=== PATIENT | female | born 1985 | race Two or more races ===

== ENCOUNTER 2017-02-23 06:00 | Inpatient (IN) | payer OTHER ==
[2017-02-23 06:36] VITALS: BMI 32.6
[2017-02-23] MEDS ORDERED: ELECTROLYTE-148 SOLN 500 ML IV ONE (07:00)
[2017-02-23] MEDS ORDERED: CITRIC ACID/SODIUM CITRATE 30 ML UNIT-DOSE CUP PO ONE ×2 (07:00→11:45)
[2017-02-23] MEDS ORDERED: SUCCINYLCHOLINE CHLORIDE 200 MG/10 ML VIAL ONE (07:25)
[2017-02-23] MEDS ORDERED: ceFAZolin SODIUM 1 GM VIAL ONE ×2 (07:25→07:45)
[2017-02-23] MEDS ORDERED: ePHEDrine SULFATE 50 MG/1 ML AMPULE ONE (07:25)
[2017-02-23] MEDS ORDERED: PHENYLEPHRINE HCL 10 MG/1 ML SINGLE DOSE VIAL ONE (07:25)
[2017-02-23] MEDS ORDERED: PROPOFOL 20 ML ONE (07:25)
[2017-02-23] MEDS ORDERED: SODIUM CHLORIDE 0.9% P/F 10 ML VIAL IJ ONE (07:27)
[2017-02-23] MEDS ORDERED: ELECTROLYTE-148 SOLN 1,000 ML IV SCH (07:30)
[2017-02-23] MEDS ORDERED: OXYTOCIN 20 UNITS in 0.9% NS 20 UNIT/1,000 ML INFUS.BAG IV ONE ×2 (07:41→10:54)
[2017-02-23] MEDS ORDERED: morphine SULFATE/Preservative Free 0.5 MG/ML (1cc Syringe) ONE (07:49)
[2017-02-23] MEDS ORDERED: METHYLERGONOVINE MALEATE 0.2 MG/1 ML AMP IM PRN (08:14)
[2017-02-23] MEDS ORDERED: SENNOSIDES/DOCUSATE COMBO (SENNA PLUS) TABLET (UD) PO PRN (08:14)
[2017-02-23] MEDS ORDERED: oxyCODONE HCL 5 MG TABLET PO PRN (08:14)
--- NOTE | 2017-02-23 08:21 | HP ---
Past Medical History - Admission Chief Complaint: Here for repeat c section History of Present Illness: 31 y/o female with SIUP at 39+ weeks here for scheduled repeat delivery. H/o c section X 2. uncomplicated. No complaints today. + FM, no VB/LOF. History Source: Patient, Medical Record Limitations to Obtaining History: Language Barrier - Past Medical History Cardiovascular: No: AFIB, HTN Pulmonary: No: Asthma, COPD Gastrointestinal: No: GERD, Irritable Bowel Disease Hepatobiliary: No: Hepatitis B, Hepatitis C Reproductive: No: Ectopic , Fibroids, PID ...: 4 ...Para: 2 ...Spon : 1 ...LMP: 05/14/16 ... Weeks Gestation by Dates: 40.5 ...EDC by Dates: 02/18/17 ...EDC by Sono: 02/28/17 Heme/Onc: No: Anemia Infectious Disease: No: HIV, MRSA, STD's Psych: No: Anxiety, Bipolar, Depression - Past Surgical History Past Surgical History: Yes: Hx Myomectomy: No Hx Transabdominal Cerclage: No - Smoking History Smoking history: Never smoked Have you smoked in the past 12 months: No Aproximately how many cigarettes per day: 0 - Alcohol/Substance Use Hx Alcohol Use: No History of Substance Use: reports: None - Social History Usual Living Arrangement: Yes: With Spouse ADL: Independent History of Recent Travel: No Home Medications - Allergies Allergies/Adverse Reactions: Allergies Allergy/AdvReac Type Severity Reaction Status Date / Time No Known Allergies Allergy Verified 02/23/17 06:57 - Home Medications Home Medications: Ambulatory Orders Vit Calc,Iron,Folic [ Vitamins] 1 each PO DAILY 02/23/17 Review of Systems - Review of Systems Constitutional: reports: No Symptoms Eyes: reports: No Symptoms HENT: reports: No Symptoms Neck: reports: No Symptoms Cardiovascular: reports: No Symptoms Respiratory: reports: No Symptoms Gastrointestinal: reports: No Symptoms Genitourinary: reports: Pain (lower abdominal cramping pain) Breasts: reports: No Symptoms Reported Musculoskeletal: reports: No Symptoms Integumentary: reports: No Symptoms Neurological: reports: No Symptoms Endocrine: reports: No Symptoms Hematology/Lymphatic: reports: No Symptoms Psychiatric: reports: No Symptoms Physical Exam - Maternity Constitutional: Yes: Well Nourished, No Distress, Calm Eyes: Yes: Conjunctiva Clear, EOM Intact HENT: Yes: Atraumatic, Normocephalic Neck: Yes: Trachea Midline Cardiovascular: Yes: Regular Rate and Rhythm Lungs: Normal air movement Breast(s): Yes: WNL - Abdominal Exam/OB Number of Fetuses: Single Presentation: Vertex Monitor Mode: External Category: I Accelerations: Uniform Decelerations: None - Vaginal Exam/OB Speculum Exam: No Amniotic Membrane Status: Intact Presentation: Vertex/Position - Physical Exam Extremities: Yes: WNL Psychiatric: Yes: Alert, Oriented Hemorrhage Risk Assessment - Risk Factors Medium Risk Factors: Yes: Prior , uterine surgery,or multiple laparotomies High Risk Factors: Yes: None Risk Score: 1 Risk Level: Medium Risk Problem List - Problems (1) Previous delivery affecting , antepartum Code(s): O34.21 - MATERNAL CARE FOR SCAR FROM PREVIOUS * DO NOT USE * Assessment/Plan 31y/o with SIUP at 39+ weeks, here for scheduled repeat delivery - AFVSS - FHTS reactive - for C section - NPO, SCDs, pino catheter, preop antibiotics - anesthesia and nursing aware
[2017-02-23] MEDS ORDERED: ONDANSETRON 4 MG/2 ML VIAL IVPUSH PRN (08:54)
--- NOTE | 2017-02-23 09:10 | OP ---
Operative Note - Note: Operative Date: 02/23/17 Pre-Operative Diagnosis: SIUP at 39 weeks, prior delivery X2, declined tolac Operation: repeat low transverse delivery Post-Operative Diagnosis: Same as Pre-op Surgeon: Anamaria Godfrey Tank Farm Operator: Matthieu Salas Anesthesiologist/SOLE BLACKER: Smaeer Guajardo Anesthesia: Spinal Specimens Removed: placenta, cord blood Estimated Blood Loss (mls): 600 Operative Report Dictated: Yes
[2017-02-23] MEDS: OXYTOCIN 20 UNITS in 0.9% NS 20 UNIT/1,000 ML INFUS.BAG IV SCH ×2 (10:59→18:37)
[2017-02-23] MEDS ORDERED: ELECTROLYTE-148 SOLN 500 ML IV SCH ×2 (12:00→12:30)
[2017-02-23] MEDS: IBUPROFEN 800 MG/8 ML IJ IVPB PRN ×2 (14:07→21:20)
--- NOTE | 2017-02-23 19:36 | OP ---
DATE OF OPERATION: 02/23/2017 PREOPERATIVE DIAGNOSIS: Single intrauterine at 39 weeks, prior delivery x2, declined trial of labor after delivery. POSTOPERATIVE DIAGNOSIS: Single intrauterine at 39 weeks, prior delivery x2, declined trial of labor after delivery. PROCEDURE: Repeat low transverse delivery. SURGEON: Anamaria Alford DO TECHNOLOGY AND ENGINEERING TEACHER: OJ Roca COMPLICATIONS: None. ESTIMATED BLOOD LOSS: 600 mL COUNTS: Sponge, needle, and instrument count correct. SPECIMENS REMOVED: Placenta and cord blood collection. DISPOSITION: Stable to PACU. BRIEF HISTORY AND DESCRIPTION OF PROCEDURE: Patient is a 31-year-old, G4, P2 female who has a history of prior section x2, who arrived to Labor and Delivery on February 23, 2017, for a scheduled repeat low transverse delivery. Consents were signed upon admission. The patient was then taken back to the operating room. She was given spinal anesthesia by Dr. Sameer Guajardo and was placed on the operating room table in a dorsal supine position. A Miles catheter was placed under sterile conditions. Then, the patient was prepped and draped in the usual fashion, and a hard timeout was performed. A Pfannenstiel skin incision was created in the skin with a scalpel, carried to the underlying layer of rectus fascia with a scalpel as well as with the Bovie. The fascia was incised on either side of the midline with the Bovie, and the fascial incision was carried in superolateral direction sharply. The fascia was tented upward and dissected off the underlying layer of rectus muscle with the Bovie. The musculature was identified, in the midline, and the peritoneum was entered sharply. The peritoneum and musculature were carefully dissected to allow for adequate room for delivery. A bladder blade was inserted. A bladder flap was created, and a transverse incision was created in the lower uterine segment of the uterus and carried in a superolateral direction bluntly. The infant was delivered from the LOT position, and a loose nuchal cord was noted after delivery of the head which was reduced at that time. The bilateral shoulders delivered with ease along with the remainder of the infant. The cord was clamped twice and cut in between. The infant was taken over to the warmer to be assessed by the neonatology staff. The placenta was then delivered intact with a 3-vessel cord. The uterus was exteriorized and inspected and cleared of all amniotic membrane and debris with a dry lap sponge. The hysterotomy was reapproximated in double-layer closure, first using 1 Vicryl in a running locked fashion. Second was a 0 Biosyn suture in running, locked, imbricating layer. The bilateral tubes and ovaries were noted to be normal. The posterior cul-de-sac was suctioned. The uterus was placed back in the abdomen. Bilateral gutters were inspected and cleared of all debris. The hysterotomy was re-examined and noted to be hemostatic. The peritoneal layer was reapproximated with 2-0 chromic in a running fashion. The musculature was reapproximated in a running fashion using 2-0 chromic. The fascia was reapproximated using 1 Vicryl in a running fashion. Subcutaneous tissue was irrigated, and any bleeding was cauterized with the Bovie device. The subcutaneous tissue was reapproximated in a running fashion and the skin was reapproximated in a subcuticular fashion using 3-0 vicryl suture and Steri- Strips were applied. Sponge, needle, and instrument counts reported to be correct. The patient tolerated the procedure well, is recovering in the PACU in stable condition at this time. ANAMARIA ALFORD DO /[id number] KYLER
[2017-02-23] MEDS ORDERED: TUBERCULIN PPD 5 TU/0.1ML SYRINGE (IN PATIENT USE ONLY) ID ONE (21:00)
[2017-02-24] MEDS: OXYTOCIN 20 UNITS in 0.9% NS 20 UNIT/1,000 ML INFUS.BAG IV SCH (03:20)
[2017-02-24] MEDS: IBUPROFEN 800 MG/8 ML IJ IVPB PRN (05:33)
[2017-02-24] MEDS ORDERED: BISACODYL 10 MG SUPP.RECT RC PRN (08:15)
[2017-02-24 08:42] LABS: BASO % 0.4 % (0-2.0); EOS % 0.9 % (0-4.5); HEMATOCRIT 38.3 % (32.4-45.2); HEMOGLOBIN 12.4 GM/dL (10.7-15.3); LYMPH % 18.9 % (8-40); MCH 26.7 pg (25.7-33.7); MCHC 32.4 g/dl (32.0-36.0); MEAN CELL VOLUME 82.5 fl (80-96); MEAN PLT VOLUME 7.7 fl (7.5-11.1); MONO % 5.9 % (3.8-10.2); NEUT % 73.9 % (42.8-82.8); PLATELET COUNT 288 K/MM3 (134-434); RBC 4.64 M/mm3 (3.60-5.2); RDW 14.1 % (11.6-15.6); WHITE BLOOD COUNT 12.8 K/mm3 (4.0-10.0)
[2017-02-24] MEDS ORDERED: FLU VACC QS2017-18 36MOS UP/PF 60 MCG/0.5 ML SYRINGE IM ONE (10:00)
[2017-02-24] MEDS ORDERED: DIPHTH,PERTUSS(ACELL),TET 0.5 ML DISP.SYRIN IM ONE (10:00)
[2017-02-24] MEDS: PRENATAL VITAMINS W/ FOLIC ACID TABLET (FP) PO SCH (11:25)
[2017-02-24] MEDS: ENOXAPARIN NA (PORCINE) 40 MG/0.4 ML DISP.SYRIN SQ SCH (11:25)
[2017-02-24] MEDS: oxyCODONE HCL 5 MG TABLET PO PRN ×3 (11:32→21:37)
[2017-02-24] MEDS: ACETAMINOPHEN 325 MG TABLET (FP) PO PRN ×2 (11:33→21:36)
[2017-02-24] MEDS: SIMETHICONE 80 MG TAB.CHEW (FP) PO PRN ×3 (11:34→21:36)
--- NOTE | 2017-02-24 15:03 | PN ---
Progress Note (short form) - Note Progress Note: Anesthesia POD#1 S/P Repeat under spinal A and Duramorph VSS,no N/V,moving around well,mild itch. Kristy Jimenez MD.
[2017-02-24] MEDS: IBUPROFEN 600 MG TABLET (FP) PO PRN (17:49)
[2017-02-25] MEDS: ACETAMINOPHEN 325 MG TABLET (FP) PO PRN (01:45)
[2017-02-25] MEDS: SIMETHICONE 80 MG TAB.CHEW (FP) PO PRN ×3 (01:45→18:25)
[2017-02-25] MEDS: oxyCODONE HCL 5 MG TABLET PO PRN ×3 (01:46→18:26)
[2017-02-25] MEDS: IBUPROFEN 600 MG TABLET (FP) PO PRN ×2 (10:00→18:25)
[2017-02-25] MEDS: ENOXAPARIN NA (PORCINE) 40 MG/0.4 ML DISP.SYRIN SQ SCH (10:01)
[2017-02-25] MEDS: PRENATAL VITAMINS W/ FOLIC ACID TABLET (FP) PO SCH (10:05)
--- NOTE | 2017-02-25 13:55 | PATH ---
Surgical Pathology Report Patient Name: MARCO WOLF [facility]. Rec. #: [id number] /Age/Gender: 1985 (Age: 31) / F Account: [id number] Location: [facility] OBS/TACTICAL AIR DEFENSE CONTROLLER Taken: 02/23/2017 Received: 02/23/2017 Reported: 02/25/2017 Physicians: Anamaria Godfrey M.D. Specimen(s) Received PLACENTA Clinical History , x2 02/24/2017 Final Diagnosis PLACENTA, DELIVERY: FOCALLY DISRUPTED THIRD TRIMESTER PLACENTA WITH THREE VESSEL UMBILICAL CORD AND MECONIUM HISTIOCYTOSIS OF PLACENTAL MEMBRANES. Electronically Signed Cortez Espitia M.D. Gross Description The specimen is received fresh labeled placenta and is a 518 gram, 16.0 x 15.0 x 3.2 cm. placenta with attached membranes and umbilical cord. The attached membranes are gilliland green, meconium stained, translucent with focal opacities and insert marginally. The umbilical cord measures 39 cm. in length and averages 1.1 cm. in diameter. The cord inserts eccentrically, 2.5 cm. to the nearest margin. No true knots or strictures are identified. Cut surface of the umbilical cord reveals 3 vessels. The surface is timmons green, meconium stained with moderate fibrin deposition and appropriate caliber vessels. The maternal surface is red-brown with focal defects. Sectioning reveals red-brown, spongy parenchyma. No lesions are identified. Bed Setter sections are submitted in three cassettes as follows: 1- membrane rolls and umbilical cord; 2-3- full thickness sections of placenta. 02/24/201702/24/2017
--- NOTE | 2017-02-25 21:23 | PN ---
Post Progress Note - Subjective Subjective: Pt seen/evaluated and doing well. Pain controlled with oral medications. Tolerating diet. Ambulating, voiding, passing flatus. No complaints. Type of Delivery: Repeat C/S Vital Signs: Vital Signs Temperature 98.1 F 02/25/17 10:00 Pulse Rate 83 02/25/17 10:00 Respiratory Rate 20 02/25/17 10:00 Blood Pressure 128/65 02/25/17 10:00 O2 Sat by Pulse Oximetry (%) 99 02/23/17 10:15 Breast Exam: Yes: Soft Uterus: Yes: Fundus below umbilicus Incision: Yes: Sutures intact Abdomen/GI: Yes: Abdomen soft, Passing flatus, Tolerating PO. No: Tender Lochia: Yes: Rubra Lochia, amount: Small Extremities: Yes: Calves non-tender. No: Edema Perineum: Yes: Intact Activity: Ambulating - Labs Labs: CBC WBC 12.8 K/mm3 (4.0-10.0) H D 02/24/17 08:00 RBC 4.64 M/mm3 (3.60-5.2) 02/24/17 08:00 Hgb 12.4 GM/dL (10.7-15.3) 02/24/17 08:00 Hct 38.3 % (32.4-45.2) 02/24/17 08:00 MCV 82.5 fl (80-96) 02/24/17 08:00 MCH 26.7 pg (25.7-33.7) 02/24/17 08:00 MCHC 32.4 g/dl (32.0-36.0) 02/24/17 08:00 RDW 14.1 % (11.6-15.6) 02/24/17 08:00 Plt Count 288 K/MM3 (134-434) 02/24/17 08:00 MPV 7.7 fl (7.5-11.1) 02/24/17 08:00 Neutrophils % 73.9 % (42.8-82.8) 02/24/17 08:00 Lymphocytes % 18.9 % (8-40) D 02/24/17 08:00 Monocytes % 5.9 % (3.8-10.2) 02/24/17 08:00 Eosinophils % 0.9 % (0-4.5) D 02/24/17 08:00 Basophils % 0.4 % (0-2.0) 02/24/17 08:00 Problem List - Problems (1) Previous delivery affecting , antepartum Code(s): O34.21 - MATERNAL CARE FOR SCAR FROM PREVIOUS * DO NOT USE * (2) delivery delivered Code(s): O82 - ENCOUNTER FOR DELIVERY WITHOUT INDICATION Assessment/Plan 31 y/o POD#2 s/p repeat low transverse delivery , stable - AFVSS - Hgb 12.4 post op, pt stable - encourage ambulation - regular diet and PO pain meds - likely stable for discharge home in a.m.
[2017-02-25 23:48] VITALS: PULSE 79
[2017-02-26] MEDS: ACETAMINOPHEN 325 MG TABLET (FP) PO PRN ×2 (02:10→09:10)
[2017-02-26] MEDS: SIMETHICONE 80 MG TAB.CHEW (FP) PO PRN ×2 (02:10→09:10)
[2017-02-26] MEDS: IBUPROFEN 600 MG TABLET (FP) PO PRN ×2 (02:11→09:09)
[2017-02-26] MEDS: oxyCODONE HCL 5 MG TABLET PO PRN (02:12)
--- NOTE | 2017-02-26 07:09 | DS ---
Physical Exam-HYPERBARIC TECHNOLOGIST Vital Signs: Vital Signs Temperature 98.5 F 02/25/17 22:00 Pulse Rate 79 02/25/17 22:00 Respiratory Rate 18 02/25/17 22:00 Blood Pressure 96/56 02/25/17 22:00 O2 Sat by Pulse Oximetry (%) 99 02/23/17 10:15 Constitutional: Yes: Well Nourished, No Distress, Calm Eyes: Yes: Conjunctiva Clear, EOM Intact HENT: Yes: Atraumatic, Normocephalic Neck: Yes: Supple, Trachea Midline Cardiovascular: Yes: WNL Respiratory: Yes: WNL, Regular Gastrointestinal: Yes: Normal Bowel Sounds ....Post : Yes: Uterus firm, Uterus non-tender Extremities: Yes: WNL Wound/Incision: Yes: Clean/Dry, Well Approximated, Sutures Intact Neurological: Yes: Alert, Oriented Psychiatric: Yes: Alert, Oriented Labs: CBC, BMP 02/24/17 08:00 Delivery - Delivery Type of Anesthesia: Spinal Episiotomy/Laceration: None EBL (cc): 600 Delivery, Single - Stages of Labor Date of Delivery: 02/23/17 Time of Delivery: 08:38 Date Placenta Delivered: 02/23/17 Time Placenta Delivered: 08:39 Placenta: Yes: Manual Removal - Condition of Infant Transitional Care Liaison/College President Present: Yes Name: Anaid Arroyo Infant Gender: Male Weight: 8 lb 3 oz Position: Left, OT Total Hours ROM (Hrs/Mins): 0hrs 2min - 1 Minute Total Score: 9 5 Minutes Total Score: 9 - [place] Feeding Plan Initial Plan: Elected not to breastfeed exclusively throughout hospitalization Discharge Summary Reason For Visit: LABOR ADMIT Current Active Problems delivery delivered (Acute) Procedures: Principal: repeat delivery Hospital Course: Pt admitted on 02/23/17 for scheduled repeat delivery. Pt underwent uncomplicated procedure on 02/23/17 (see operative report). She then had an uncomplicated post course and was discharged home on post op day 3 in stable condition. Condition: Good - Instructions Diet, Activity, Other Instructions: Physical activity Resume your normal everyday activity as tolerated no heavy lifting or strenuous exercise until seen by your surgeon. You may walk unlimited amounts and climb stairs. You may resume driving the car when you feel safe and comfortable behind the wheel. No sexual activity as instructed for 6 weeks. Wound care If there are tapes on the skin, leave them in place. They will peel off in the next 7 to 10 days. Do Not Peel them off. You may shower the day after surgery. If there are tapes present on the skin, you may shower over them. Please see your doctor in 1 week in the office to check on the wound/incision. Diet There are no dietary restrictions. Eat healthy, high-fiber foods. Drink 6 to 8 glasses of liquid each day. This will assist in keeping your bowels regular. Pain management You may take Tylenol or Ibuprofen as needed for pain. If any prescription medication is ordered to your pharmacy, it should be taken as prescribed for moderate to severe pain. Call MD for any of the following: Severe pain not relieved by medication Fever of 101 or higher Excessive bleeding or drainage on dressing Inability to urinate Referrals: Anamaria Godfrey DO [Staff Physician] - 1 Week Disposition: HOME - Home Medications Comprehensive Discharge Medication List: Ambulatory Orders Vit Calc,Iron,Folic [ Vitamins] 1 each PO DAILY 02/23/17
[2017-02-26 07:58] VITALS: BP 129/71; TEMP 98.2
[2017-02-26] MEDS: ENOXAPARIN NA (PORCINE) 40 MG/0.4 ML DISP.SYRIN SQ SCH (09:11)
[2017-02-26] MEDS: PRENATAL VITAMINS W/ FOLIC ACID TABLET (FP) PO SCH (09:11)
[2017-02-26 09:35] LABS: BASO % 0.4 % (0-2.0); HEMATOCRIT 36.6 % (32.4-45.2); MCH 27.1 pg (25.7-33.7); MCHC 32.8 g/dl (32.0-36.0); MEAN CELL VOLUME 82.7 fl (80-96); MEAN PLT VOLUME 7.3 fl (7.5-11.1); MONO % 4.8 % (3.8-10.2); NEUT % 80.8 % (42.8-82.8); PLATELET COUNT 318 K/MM3 (134-434); RBC 4.43 M/mm3 (3.60-5.2); RDW 13.9 % (11.6-15.6); WHITE BLOOD COUNT 10.9 K/mm3 (4.0-10.0)
== END 2017-02-26 12:35 | disposition home or self-care (01) | DRG 540 ==
LOC: JLDR 06:00 → J3W 11:18
PROVIDERS: ADMIT Obstetrics & Gynecology; ATTEND Obstetrics & Gynecology
PROC: 10D00Z1 Extraction of Products of Conception, Low, Open Approach (ICD-10-PCS; principal; 2017-02-23)
DX: O34.219 Maternal care for unspecified type scar from previous cesarean delivery (principal); Z3A.39 39 weeks gestation of pregnancy; Z37.0 Single live birth
CPT/HCPCS: 36415; 85025; 88307-TC; 90686; 90715; G0008